=== PATIENT | female | born 1940 | race Caucasian/White ===

== ENCOUNTER 2017-03-18 08:00 | Outpatient (CLI) | payer MEDICARE | END 2017-03-18 08:01 | disposition home or self-care (01) | LOC: BICMAMMO 08:00 | PROVIDERS: ATTEND Family Medicine | DX: N63.10 Unspecified lump in the right breast, unspecified quadrant (principal); Z80.3 Family history of malignant neoplasm of breast | CPT/HCPCS: G0204; G0279; 77066 ==

== ENCOUNTER → 2017-04-03 | Day surgery (SDC) | payer MEDICARE | LOC: BICULT 13:54 | PROVIDERS: ATTEND Family Medicine | DX: N60.11 Diffuse cystic mastopathy of right breast (principal) | CPT/HCPCS: 19083; 88305 ==

== ENCOUNTER 2018-03-06 21:01 | Emergency (ER) | payer MEDICARE ==
[2018-03-06 21:40] LABS: #Basophils 0.2 thou/uL (0.0-0.2); #Eosinphils 0.2 thou/uL (0.0-0.7); #Monocytes 0.6 thou/uL (0.11-0.59); #Neutrophils 5.9 thou/uL (1.40-6.50); %Lymphocytes 22.1 % (21.0-51.0); %Neutrophils 66.8 % (42.0-75.0); Hemoglobin 13.5 g/dL (12.0-16.0); Mean Corpuscular HGB CONC 30.8 g/dL (32.0-36.0); Mean Corpuscular Hemoglobin 26.5 pg (27.0-31.0); Mean Corpuscular Volume 85.8 fL (78.0-98.0); Mean Platelet Volume 9.4 fL (7.4-10.4); Platelet Count 348 thou/uL (130-400); RBC Distribution Width 12.2 % (11.5-14.5); Red Blood Cell (RBC) Count 5.09 mill/uL (4.20-5.40); White Blood Cell (WBC) Count 8.9 thou/uL (4.8-10.8)
[2018-03-06 21:45] LABS: ALT (SGPT) 37 U/L (8-55); AST (SGOT) 24 U/L (5-34); Alkaline Phosphatase 85 U/L (40-150); Anion Gap 15 mmol/L (10-20); BUN (Urea Nitrogen) 20 mg/dL (9.8-20.1); Bilirubin, Total 0.3 mg/dL (0.2-1.2); Calc. Creatinine Clearance 0 mL/min (70-130); Calcium 10.1 mg/dL (7.8-10.44); Carbon Dioxide 22 mmol/L (23-31); Chloride 103 mmol/L (98-107); Estimated GFR-MDRD 90; Globulin 3.4 g/dL (2.4-3.5); Glucose 192 mg/dL (83-110); Potassium 4.1 mmol/L (3.5-5.1); Protein, Total 7.4 g/dL (6.0-8.3); Sodium 136 mmol/L (136-145)
[2018-03-06 22:06] LABS: Bilirubin Negative (Negative); Blood, Urine Negative (Negative); Clarity Slightly Cloudy (Clear); Glucose, Urine (Dipstick) Negative (Negative); Leukocyte Trace (Negative); Nitrite Negative (Negative); Protein, Urine (Dipstick) 100 mg/dL (Neg-Trace); Urobilinogen 0.2 mg/dL (0.2-1.0)
[2018-03-06 22:07] LABS: Bacteria/HPF 1+ HPF (None Seen); Hyaline Casts/LPF NONE SEEN LPF (0-3 Hyaline); RBC/HPF 0-3 HPF (0-3); Specific Gravity, Urine 1.027 (1.002-1.036)
== END 2018-03-06 22:20 | disposition home or self-care (01) ==
LOC: SCSER 21:01
DX: I10 Essential (primary) hypertension (principal); N39.0 Urinary tract infection, site not specified; K21.9 Gastro-esophageal reflux disease without esophagitis; E11.9 Type 2 diabetes mellitus without complications; E78.5 Hyperlipidemia, unspecified; Z79.899 Other long term (current) drug therapy; Z79.82 Long term (current) use of aspirin
CPT/HCPCS: 80053; 81003; 81015; 84484; 85025; 93005

== ENCOUNTER 2018-07-31 12:39 | Outpatient (CLI) | payer MEDICARE ==
--- NOTE | 2018-07-31 13:54 | MMO ---
Bilateral MAMMO Bilat Screen [facility]. CLINICAL HISTORY: Patient is 78 years old and is seen for screening. The patient has the following family history of breast cancer: mother, at age 40. The patient has no personal history of cancer. The patient has a history of right Ultrasound Guided Core Biopsy in March, - benign and left Excisional Biopsy in 20 YRS AGO - benign. VIEWS: The views performed were: bilateral craniocaudal with tomosynthesis and bilateral mediolateral oblique with tomosynthesis. FILMS COMPARED: The present examination has been compared to prior imaging [place] [facility] [place], and at [facility] on 03/18/2017. MAMMOGRAM FINDINGS: There are scattered fibroglandular densities. Benign calcifications are noted bilaterally. Right biopsy clip. There are no suspicious masses, suspicious calcifications, or new areas of architectural distortion. IMPRESSION: THERE IS NO MAMMOGRAPHIC EVIDENCE OF MALIGNANCY. A ROUTINE FOLLOW-UP MAMMOGRAM IN 1 YEAR IS RECOMMENDED. THE RESULTS OF THIS EXAM WERE SENT TO THE PATIENT. ACR BI-RADS Category 2 - Benign finding MAMMOGRAPHY NOTE: 1. A negative mammogram report should not delay a biopsy if a dominant of clinically suspicious mass is present. 2. Approximately 10% to 15% of breast cancers are not detected by mammography. 3. Adenosis and dense breasts may obscure an underlying neoplasm.
--- NOTE | 2018-07-31 15:40 | BD ---
DEXA BONE DENSITOMETRY: (Dual energy X-ray Absorptiometry) 07/31/18 HISTORY: 78-year-old white female for age-related, postmenopausal osteoporosis screening examination. Ht. 64 i nches. Wt. 210 lb. Age of menopause 33 years. COMPARISON: None available. FINDINGS: The bone mineral density (BMD) is given in grams per square centimeter (g/cm2): LUMBAR SPINE: BMD(g/cm2) T-score Z-score L1: 0.907 -0.9 1.5 L2: 0.977 -0.5 2.0 L3: 0.955 -1.2 1.5 L4: 1.055 -0.1 2.7 Total: 0.978 -0.6 1.9 HIP: Femoral neck: 0.733 -1.0 1.1 Total: 0.932 -0.1 1.8 IMPRESSION: 1) The mean bone mineral density of the lumbar spine is normal. Fracture risk is not increased. 2) The bone mineral density of the femoral neck is normal. Fracture risk is not increased. DAMARI Martinez POS: JANNA
== END 2018-07-31 12:40 | disposition home or self-care (01) ==
LOC: BICMAMMO 12:39
PROVIDERS: ATTEND Family Medicine
DX: Z12.31 Encounter for screening mammogram for malignant neoplasm of breast (principal); Z13.820 Encounter for screening for osteoporosis; Z78.0 Asymptomatic menopausal state; Z80.3 Family history of malignant neoplasm of breast
CPT/HCPCS: 77063; 77067; 77080

== ENCOUNTER 2019-10-07 10:33 | Outpatient (CLI) | payer MEDICARE ==
--- NOTE | 2019-10-07 11:03 | MMO ---
Bilateral MAMMO Bilat Screen [facility]. CLINICAL HISTORY: Patient is 79 years old and is seen for screening. The patient has the following family history of breast cancer: mother, at age 40. The patient has no personal history of cancer. The patient has a history of right Ultrasound Guided Core Biopsy in March, - benign and left Excisional Biopsy in 20 YRS AGO - benign. VIEWS: The views performed were: bilateral craniocaudal with tomosynthesis; bilateral mediolateral oblique with tomosynthesis; and right mediolateral oblique. FILMS COMPARED: The present examination has been compared to prior imaging studies performed at [facility] [place] on 12/26/[place], and at [facility] on 03/18/2017 and 07/31/2018. This study has been interpreted with the assistance of computer-aided detection. MAMMOGRAM FINDINGS: There are scattered fibroglandular densities. There are stable benign appearing calcifications seen in both breasts. There are no suspicious masses, suspicious calcifications, or new areas of architectural distortion. IMPRESSION: THERE IS NO MAMMOGRAPHIC EVIDENCE OF MALIGNANCY. A ROUTINE FOLLOW-UP MAMMOGRAM IN 1 YEAR IS RECOMMENDED. THE RESULTS OF THIS EXAM WERE SENT TO THE PATIENT. ACR BI-RADS Category 2 - Benign finding MAMMOGRAPHY NOTE: 1. A negative mammogram report should not delay a biopsy if a dominant of clinically suspicious mass is present. 2. Approximately 10% to 15% of breast cancers are not detected by mammography. 3. Adenosis and dense breasts may obscure an underlying neoplasm. Reported by: KATRINA ARDON MD Electonically Signed: [id number]
== END 2019-10-07 10:34 | disposition home or self-care (01) ==
LOC: BICMAMMO 10:33
PROVIDERS: ATTEND Family Medicine
DX: Z12.31 Encounter for screening mammogram for malignant neoplasm of breast (principal); Z80.3 Family history of malignant neoplasm of breast; Z91.89 Other specified personal risk factors, not elsewhere classified
CPT/HCPCS: 77063; 77067

== ENCOUNTER 2019-10-29 07:54 | Outpatient (CLI) | payer MEDICARE, OTHER ==
[2019-10-29 14:17] LABS: INR-International Normal Ratio 0.9; Prothrombin Time 12.3 sec (12.0-14.7)
[2019-10-29 14:32] LABS: #Basophils 0.1 thou/uL (0.0-0.2); #Eosinphils 0.1 thou/uL (0.0-0.7); #Lymphocytes 1.8 thou/uL (1.20-3.40); #Monocytes 0.6 thou/uL (0.11-0.59); #Neutrophils 7.6 thou/uL (1.40-6.50); %Basophils 1.2 % (0.0-1.0); %Eosinophils 1.3 % (0.0-10.0); %Lymphocytes 17.7 % (21.0-51.0); %Monocytes 6.3 % (0.0-10.0); %Neutrophils 73.7 % (42.0-75.0); Hemoglobin 13.7 g/dL (12.0-16.0); Mean Corpuscular HGB CONC 32.8 g/dL (32.0-36.0); Mean Corpuscular Hemoglobin 28.8 pg (27.0-31.0); Mean Corpuscular Volume 87.7 fL (78.0-98.0); Mean Platelet Volume 8.6 fL (7.4-10.4); Platelet Count 364 thou/uL (130-400); RBC Distribution Width 12.6 % (11.5-14.5); Red Blood Cell (RBC) Count 4.77 mill/uL (4.20-5.40); White Blood Cell (WBC) Count 10.3 thou/uL (4.8-10.8)
[2019-10-29 14:43] LABS: Bacteria/HPF None Seen HPF (None Seen); Bilirubin Negative (Negative); Blood, Urine Negative (Negative); Clarity Clear (Clear); Glucose, Urine (Dipstick) Normal (Negative); Ketone, Urine Negative (Negative); Leukocyte 250 Leu/uL (Negative); Nitrite Negative (Negative); Protein, Urine (Dipstick) 10 mg/dL (Neg-Trace); RBC/HPF 0-3 HPF (0-3); Specific Gravity, Urine 1.024 (1.002-1.036); Urobilinogen Normal mg/dL (Less than 2); pH, Urine 5.5 (5.0-9.0)
[2019-10-29 14:59] LABS: Anion Gap 13 mmol/L (10-20); BUN (Urea Nitrogen) 20 mg/dL (9.8-20.1); Calc. Creatinine Clearance 0 mL/min (70-130); Calcium 10.1 mg/dL (7.8-10.44); Carbon Dioxide 27 mmol/L (23-31); Chloride 99 mmol/L (98-107); Estimated GFR-MDRD 90; Glucose 137 mg/dL (83-110); Potassium 4.4 mmol/L (3.5-5.1); Sodium 135 mmol/L (136-145)
[2019-10-30 13:41] LABS: SARS-CoV-2 MS2 Positive; SARS-CoV-2 N Gene Negative; SARS-CoV-2 S Gene Negative; SARS-CoV-2 by NAA Not Detected (NotDetected); SARS-CoV-2 orf1ab Negative
== END 2019-10-29 07:55 | disposition home or self-care (01) ==
LOC: LABBT 07:54
PROVIDERS: ATTEND Orthopaedic Surgery
DX: Z01.818 Encounter for other preprocedural examination (principal); Z20.828 Contact with and (suspected) exposure to other viral communicable diseases; T84.093D Other mechanical complication of internal left knee prosthesis, subsequent encounter
CPT/HCPCS: 80048; 81001; 85025; 85610; 87081; 93005; U0003; 87635; 93010

== ENCOUNTER 2019-10-29 13:15 | Inpatient (IN) | payer MEDICARE ==
[2019-10-29 09:38] VITALS: BMI 35.5
[2019-11-03] MEDS ORDERED: Vancomycin 1.5 GRAM/300 ML BAG ONE (07:54)
[2019-11-03] MEDS ORDERED: Tranexamic Acid 1,000 MG/10 ML VIAL ONE ×2 (07:54→12:25)
[2019-11-03] MEDS ORDERED: Sodium Chloride 0.9% 100 ML ONE (07:54)
[2019-11-03] MEDS ORDERED: Midazolam HCl 2 mg/2 ml Vial ONE ×2 (08:42→08:45)
[2019-11-03] MEDS ORDERED: Fentanyl 100 MCG/2 ML VIAL ONE ×3 (08:42→12:51)
[2019-11-03] MEDS ORDERED: Zolpidem Tartrate 5 MG TAB PO PRN ×2 (09:08→09:23)
[2019-11-03] MEDS ORDERED: Ondansetron PF 4 MG/2 ML Vial IVP PRN ×2 (09:08→09:23)
[2019-11-03] MEDS ORDERED: Acetaminophen 325 MG TAB PO PRN (09:08)
[2019-11-03] MEDS ORDERED: traMADol HCl 50 MG TAB PO PRN ×3 (09:08→09:23)
[2019-11-03] MEDS ORDERED: HYDROcodone/Acetaminophen 10/325 mg Tablet PO PRN ×2 (09:08)
[2019-11-03] MEDS ORDERED: Promethazine HCl 25 MG/ML VIAL IM PRN ×3 (09:08→12:14)
[2019-11-03] MEDS ORDERED: diphenhydrAMINE 25 MG CAP PO PRN (09:08)
[2019-11-03] MEDS ORDERED: Ropivacaine 0.2% HCl/PF (40 MG/20 ML VIAL) ONE (09:19)
[2019-11-03] MEDS ORDERED: Bupivacaine HCl 0.5%/Epinephrine 1:200,000/PF 30 ml Vial ONE (09:19)
[2019-11-03] MEDS ORDERED: Lidocaine 1% PF 5 ML VIAL ONE (09:19)
[2019-11-03] MEDS ORDERED: diphenhydrAMINE 50 MG/ML VIAL ONE (09:19)
[2019-11-03] MEDS ORDERED: Ondansetron PF 4 MG/2 ML Vial ONE (09:19)
[2019-11-03] MEDS ORDERED: EPHEDRINE 25 MG/5 ML SYRINGE ONE (09:19)
[2019-11-03] MEDS ORDERED: PROPOFOL 200 MG/20 ML VIAL ONE (09:19)
[2019-11-03] MEDS ORDERED: Ropivacaine HCl/PF 250 ML in Premix Bag 1 BAG NERVE BLCK SCH (09:23)
[2019-11-03] MEDS ORDERED: HYDROcodone/Acetaminophen 5/325 mg Tablet PO PRN (09:23)
[2019-11-03] MEDS ORDERED: Fentanyl 100 MCG/2 ML VIAL IV PRN (09:24)
[2019-11-03] MEDS ORDERED: Ondansetron HCl/PF 4 MG/2 ML Vial IVP PRN (12:14)
[2019-11-03] MEDS ORDERED: Promethazine HCl 25 MG/ML VIAL SLOW IVP PRN (12:14)
[2019-11-03] MEDS ORDERED: Morphine Sulfate 2 MG/ML SYRINGE SLOW IVP PRN (12:14)
[2019-11-03] MEDS: Sodium Chloride 0.9% 1,000 ML IV SCH ×2 (13:05→15:57)
[2019-11-03] MEDS: Ketorolac Tromethamine 30 MG/ML VIAL IVP SCH ×3 (13:06→23:10)
[2019-11-03] MEDS ORDERED: Ketorolac Tromethamine 30 MG/ML VIAL IVP SCH (14:00)
--- NOTE | 2019-11-03 14:11 | RAD ---
LEFT KNEE 3 VIEWS: HISTORY: Postop knee replacement. FINDINGS: There are postoperative changes in the soft tissues. A knee prosthesis has been placed. Components show adequate position and alignment. POS: AGW
[2019-11-03] MEDS ORDERED: Insulin Regular 300 UNITS/3 ML VIAL SC PRN (15:07)
[2019-11-03] MEDS ORDERED: Dextrose 50% Abboject 50 ML SYRINGE SLOW IVP PRN (15:07)
[2019-11-03] MEDS ORDERED: Dextrose 5% in Water 1,000 ML IV PRN (15:07)
[2019-11-03] MEDS: CEFAZOLIN 2 GM in Premix Bag 1 BAG IVPB SCH ×2 (15:58→23:10)
[2019-11-03] MEDS: glipiZIDE 5 MG TAB PO SCH (16:03)
[2019-11-03] MEDS: Insulin Regular 300 UNITS/3 ML VIAL SC PRN (17:56)
--- NOTE | 2019-11-03 17:58 | PDOC.HOSPP ---
- Subjective Encounter Date: 11/03/19 Encounter Time: 15:00 Subjective: Seen and examined for medical management. Pain controlled. No fever, chills, chest pain, palpitations, nausea or vomiting reported. - Objective Vital Signs & Weight: Vital Signs (12 hours) Temp Pulse Resp BP Pulse Ox 11/03/19 13:45 97.3 F L 86 18 135/68 95 Weight Weight 207 lb I&O: 11/02/19 11/03/19 11/04/19 06:59 06:59 06:59 Intake Total 1100 Output Total 600 Balance 500 Additional Labs: Accuchecks 11/03/19 17:33 POC Glucose 202 H Laboratory Tests 09/24/19 09/24/19 10/29/19 09:14 09:14 11:00 WBC Hgb Sodium 135 L Potassium 4.4 Chloride 99 Hemoglobin A1c 7.0 H Triglycerides 235 H 10/29/19 11:00 WBC 10.3 Hgb 13.7 Sodium Potassium Chloride Hemoglobin A1c Triglycerides EKG Reviewed by me: Yes (Sinus rhythm) Hospitalist ROS - Review of Systems Respiratory: denies: cough, dry, shortness of breath, hemoptysis, SOB with excertion, pleuritic pain, sputum, wheezing, other Cardiovascular: denies: chest pain, palpitations, orthopnea, paroxysmal noc. dyspnea, edema, light headedness, other - Medication Medications: Active Medications Generic Name Dose Route Start Last Admin Trade Name Freq PRN Reason Stop Dose Admin Glipizide 5 mg 11/03/19 17:00 11/03/19 16:03 Glucotrol PO 5 mg BID-WM ZOILA Administration Cefazolin Sodium/Dextrose 2 gm 50 mls @ 100 mls/hr 11/03/19 16:00 11/03/19 15 :58 / Device IVPB 11/04/19 00:29 50 mls 0000,1600 ZOILA Administration Sodium Chloride 1,000 mls @ 100 mls/hr 11/03/19 09:15 11/03/19 15:57 Normal Saline 0.9% IV 1,000 mls .Q10H ZOILA Administration Ketorolac Tromethamine 15 mg 11/03/19 12:00 11/03/19 16:06 Toradol IVP 11/05/19 06:01 15 mg Q6HR ZOILA Administration - Exam General Appearance: NAD Heart: RRR, no gallops Respiratory: no wheezes, no ronchi Gastrointestinal: non-tender, normal bowel sounds Extremities: no cyanosis, no clubbing, no edema Neurological: no new deficit Psychiatric: normal affect, A&O x 3 Hosp A/P - Plan DVT proph w/SCDs Diabetes mellitus type 2 Hypertension Hyperlipidemia GERD Obesity with a BMI 35.5 Degenerative joint disease Seasonal allergies Mild hyponatremia Plan: Continue postop monitoring. Will start insulin sliding scale. Continue glipizide. Restart lisinopril, metoprolol and amlodipine with holding parameters. DVT prophylaxis per protocol. Add PRN antihypertensives. Incentive spirometry. Vital signs per protocol. Continue physical therapy. Full code. Patient makes her own decision with the help of her family. Thank you for this consultation will follow with you.
--- NOTE | 2019-11-03 18:37 | OP ---
DATE OF PROCEDURE: 11/03/2019 This is Yeyo Doan PA-C dictating a report for Jeff Mcmahan MD. 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 OPERATIVE PROCEDURE: Revision left total knee arthroplasty. SURGEON: Jeff Mcmahan MD. SILK FOLDER: Yeyo Doan PA-C. ANESTHESIA: General via LMA augmented with indwelling adductor canal block and a single-shot sciatic block. COMPONENTS USED: [employer], size 2 total stabilized femoral component with a 16 mm diameter 100 mm length fluted stem, a size 2 triathlon universal tibial base plate with a 50 mm cemented stem, 13 mm polyethylene fixed bearing TS insert and appropriate augments as needed both distally and posteriorly. ESTIMATED BLOOD LOSS: 100. FINDINGS: Multidirectional instability, lateral collateral ligament instability and posterior cruciate ligament absence, and multidirectional instability and posterior subluxation. TOURNIQUET TIME: 108 minutes. INPUT: 1 L of crystalloid. OUTPUT: 200 mL clear yellow urine. DRAINS: None. SPECIMENS: None. COMPLICATIONS: None. COUNTS: Correct. INDICATION FOR SURGERY: Anabella is a 79-year-old white female, who has had multidirectional instability and left total knee arthroplasty, which was performed greater than 10 years ago. Apparently, she has had rupture of both lateral collateral ligament as well as her posterior cruciate ligament from her originally cruciate sparing platform, which was implanted greater than 10 years ago. DESCRIPTION OF PROCEDURE: After informed consent was obtained in the preoperative holding area, the patient was taken to the operative suite, where she received preoperative antibiotics and a well-padded tourniquet was placed over the proximal thigh of the operative side. The patient was then positioned appropriately on the operating table and the operative extremity was prepped and draped in usual sterile fashion. Prior to exsanguination, a multidisciplinary time-out was called and observed by all members of the surgical team. The extremity was then exsanguinated and the tourniquet remained further rest of the case to include closure. A midline incision was performed using the patient's old scar right directly down the anterior aspect of the knee. We sharply undermined the subcutaneous layers exposing the medial capsule and a sharp medial parapatellar arthrotomy was carried down two fingerbreadths medial to the tibial tubercle. A full synovectomy was performed all the way down to the joint line. Both medial and lateral gutters were cleaned out. Thus, exposing the femoral implant as well as tibial implant. The polyethylene insert was removed using a series of a curved curettes and leverage. After this was completed, we then turned our attention to removal of the femoral component. The reciprocating saw was used to clear the anterior flanges and a series of offset osteotomes and curved osteotomes were used to chisel away the rest of the cement mantle. The pharmacy sales assistant performed the reciprocating cuts for femoral removal and also the pharmacy sales assistant performed the medial parapatellar arthrotomy and subtotal synovectomy. This was then distal malleted with a RAIL TRACK MAINTAINER punch and then loosen the femoral component as much, so that it could be removed. Attention was turned toward tibial explantation and also the reciprocating saw and series of offset punches was used. Once removed, we then used sequential reaming in both the tibia and femur up to a good cortical diaphyseal purchase. The tibial cutting guide was placed and a proximal tibial revision resection was performed with the oscillating saw. Temporary base plate was set in rotation. The canal was punched for the keel and over-reamed for the tibial stem. Trials were placed in the tibia and we turned attention to the femoral rotation. We chose the appropriate spacer trial, set the femoral cutting guide off this in both flexion and extension and made the appropriate bone resections and/or built up with augmentation both anteriorly and posteriorly for good femoral fit rotation and smooth flexion, extension, varus valgus stressing. Appropriate bone cuts were made for the femoral component. Cutting block was removed and femoral trial was placed with an appropriate insert. Happy with our fit finish and varus valgus stressing, all trials removed and the bone was then irrigated copiously and prepared for permanent implants. Methacrylate cement was placed in the tibia. The final implant was malleted into place. All excess cement was removed with curettage as was the femoral component and then the interbody spacer was then placed and malleted into place and firmly pinned. The knee was placed into extension and the cement was allowed to cure. The entire wound was copiously irrigated with normal saline pulsatile lavage. Happy with our varus valgus stressing instability, primary closure was accomplished with interrupted #2 Vicryls. This was oversewn with a #2 Quill for the arthrotomy closure. Subcutaneous layer was closed with running 0 Quill and 2-0 Quill stitch was used to reapproximate the skin with cement applied over the top. Sterile dressing was applied. The procedure was terminated without any complication. Tourniquet was dropped and the patient was then awakened in the operative suite and taken to recovery room in stable condition. Job ID: [id number]
[2019-11-03] MEDS: Amlodipine 5 MG TAB PO SCH (20:30)
[2019-11-03] MEDS: Aspirin 81 mg Enteric Coated Tablet PO SCH (20:30)
[2019-11-03] MEDS ORDERED: Amlodipine 5 MG TAB PO SCH (21:00)
[2019-11-04] MEDS: HYDROcodone/Acetaminophen 5/325 mg Tablet PO PRN ×2 (05:04→16:24)
[2019-11-04] MEDS: Ketorolac Tromethamine 30 MG/ML VIAL IVP SCH ×4 (05:06→23:35)
[2019-11-04 05:26] LABS: Hemoglobin 11.9 g/dL (12.0-16.0); Mean Corpuscular HGB CONC 33.1 g/dL (32.0-36.0); Mean Corpuscular Hemoglobin 28.4 pg (27.0-31.0); Mean Corpuscular Volume 85.7 fL (78.0-98.0); Mean Platelet Volume 8.8 fL (7.4-10.4); Platelet Count 278 thou/uL (130-400); RBC Distribution Width 12.6 % (11.5-14.5); Red Blood Cell (RBC) Count 4.18 mill/uL (4.20-5.40); White Blood Cell (WBC) Count 12.7 thou/uL (4.8-10.8)
[2019-11-04] MEDS: Sodium Chloride 0.9% 1,000 ML IV SCH ×3 (05:35→23:45)
[2019-11-04] MEDS: Insulin Regular 300 UNITS/3 ML VIAL SC PRN ×3 (05:54→16:54)
--- NOTE | 2019-11-04 08:56 | PRG ---
DATE OF SERVICE: 11/04/2019 SUBJECTIVE: Anabella is a 79-year-old female, postop day 1 from a revision left total knee arthroplasty. She is doing very well. She has no complaints at this point. She is comfortable with her postoperative pain and is tolerating it very well. OBJECTIVE: VITAL SIGNS: Temperature 98.2, pulse 93, respiratory rate 16, and blood pressure 127/62. GENERAL: She is alert and oriented to person, place, time, and situation. Responsive and appropriate with examiner. EXTREMITIES: Incision is clean. No strike through and she is neurovascularly intact in the left lower extremity. LABORATORY DATA: Hemoglobin and hematocrit 11.9 and 35.8. IMPRESSION: A 79-year-old female, postop day 1, revision left total knee arthroplasty. PLAN: Continue current care. Expect discharge home tomorrow. Job ID: [id number]
[2019-11-04] MEDS ORDERED: Aspirin 325 MG TAB PO SCH (09:00)
[2019-11-04] MEDS ORDERED: MULTIVITAMIN PO SCH (09:00)
[2019-11-04] MEDS ORDERED: Lisinopril 20 MG TAB PO SCH (09:00)
[2019-11-04] MEDS ORDERED: Hydrochlorothiazide 25 MG TAB PO SCH (09:00)
[2019-11-04] MEDS: Lisinopril 20 MG TAB PO SCH (09:21)
[2019-11-04] MEDS: Hydrochlorothiazide 25 MG TAB PO SCH (09:22)
[2019-11-04] MEDS: glipiZIDE 5 MG TAB PO SCH ×2 (09:22→16:24)
[2019-11-04] MEDS: Senokot S 8.6-50 MG TAB PO SCH ×2 (09:22→21:21)
[2019-11-04] MEDS: Aspirin 81 mg Enteric Coated Tablet PO SCH ×2 (09:23→21:21)
[2019-11-04] MEDS: Ferrous Gluconate 324 MG TAB PO SCH ×2 (09:23→21:24)
[2019-11-04] MEDS: Fluticasone Propionate Nasal Spray 16 gm Bottle NASAL SCH (09:23)
[2019-11-04] MEDS: Multivitamin W/ Minerals 1 TAB PO SCH (09:23)
[2019-11-04] MEDS: Loratadine 10 MG TAB PO SCH (09:23)
--- NOTE | 2019-11-04 18:38 | PDOC.HOSPP ---
- Subjective Encounter Date: 11/04/19 Encounter Time: 11:00 Subjective: Patient seen and examined for medical management. Pain controlled. Denies any chest pain, shortness of breath, fever, nausea or syncope. - Objective Vital Signs & Weight: Vital Signs (12 hours) Temp Pulse Resp BP Pulse Ox 11/04/19 16:34 98.1 F 85 14 137/69 95 11/04/19 11:25 98.0 F 95 16 139/69 94 L 11/04/19 08:00 93 L 11/04/19 07:59 98.2 F 93 16 127/62 93 L Weight Admit Weight 207 lb Weight 207 lb I&O: 11/03/19 11/04/19 11/05/19 06:59 06:59 06:59 Intake Total 1100 1720 Output Total 600 1450 Balance 500 270 Result Diagrams: 11/04/19 05:00 Additional Labs: Accuchecks 11/04/19 11/04/19 11/04/19 15:43 10:44 05:49 POC Glucose 178 H 225 H 203 H 11/03/19 21:24 POC Glucose 174 H Hospitalist ROS - Review of Systems Respiratory: denies: cough, dry, shortness of breath, hemoptysis, SOB with excertion, pleuritic pain, sputum, wheezing, other Cardiovascular: denies: chest pain, palpitations, orthopnea, paroxysmal noc. dyspnea, edema, light headedness, other - Medication Medications: Active Medications Generic Name Dose Route Start Last Admin Trade Name Freq PRN Reason Stop Dose Admin Acetaminophen 650 mg 11/03/19 09:08 11/04/19 10:36 Tylenol PO 650 mg Q4H PRN Administration Headache/Fever or Pain Hydrocodone Bitart/Acetaminophen 2 tab 11/03/19 09:23 11/04/19 16:24 Worley 5/325 PO 2 tab Q4H PRN Administration For Moderate Pain 4-6 Amlodipine Besylate 5 mg 11/03/19 21:00 11/03/19 20:30 Norvasc PO Not Given HS ZOILA Aspirin 81 mg 11/03/19 21:00 11/04/19 09:23 Ecotrin PO 81 mg BID ZOILA Administration Ferrous Gluconate 324 mg 11/04/19 09:00 11/04/19 09:23 Fergon PO 324 mg BID ZOILA Administration Fluticasone Propionate 0 gm 11/04/19 09:00 11/04/19 09:23 Flonase Nasal Sharon NASAL 1 spr DAILY ZOILA Administration Glipizide 5 mg 11/03/19 17:00 11/04/19 16:24 Glucotrol PO 5 mg BID- ZOILA Administration Hydrochlorothiazide 25 mg 11/04/19 09:00 11/04/19 09:22 Hydrochlorothiazide PO 25 mg DAILY ZOILA Administration Sodium Chloride 1,000 mls @ 100 mls/hr 11/03/19 09:15 11/04/19 12:35 Normal Saline 0.9% IV Not Given .Q10H ZOILA Ropivacaine 250 ml/ Device 250 mls @ 10 mls/hr 11/03/19 09:23 11/04/19 16:24 NERVE BLCK 11/06/19 09:22 250 mls INF ZOILA Administration Insulin Human Regular 0 units 11/03/19 15:07 11/04/19 16:54 Humulin R SC 2 unit .MILD SLIDING SCALE PRN Administration Mild Correctional Scale Iron/Minerals/Multivitamins 1 tab 11/04/19 09:00 11/04/19 09:23 Theragran M PO 1 tab DAILY ZOILA Administration Ketorolac Tromethamine 15 mg 11/03/19 12:00 11/04/19 16:25 Toradol IVP 11/05/19 06:01 15 mg Q6HR ZOILA Administration Lisinopril 40 mg 11/04/19 09:00 11/04/19 09:21 Zestril PO 40 mg DAILY ZOILA Administration Loratadine 10 mg 11/04/19 09:00 11/04/19 09:23 Claritin PO 10 mg DAILY ZOILA Administration Metoprolol Succinate 100 mg 11/04/19 09:00 11/04/19 09:24 Toprol Xl PO 100 mg DAILY ZOILA Administration Pantoprazole Sodium 40 mg 11/04/19 09:00 11/04/19 09:24 Protonix PO 40 mg DAILY ZOILA Administration Senna/Docusate Sodium 2 tab 11/04/19 09:00 11/04/19 09:22 Senokot S PO 2 tab BID ZOILA Administration Tramadol HCl 100 mg 11/03/19 09:23 11/04/19 10:37 Ultram PO 100 mg Q6H PRN Administration Moderate Pain 4-6 - Exam General Appearance: NAD Neck: supple, no JVD Heart: RRR, no gallops Respiratory: no wheezes, no ronchi Gastrointestinal: soft, non-tender, normal bowel sounds Extremities: no cyanosis Neurological: no new deficit Hosp A/P - Plan DVT proph w/SCDs Diabetes mellitus type 2 Hypertension Hyperlipidemia GERD Obesity with a BMI 35.5 Degenerative joint disease Seasonal allergies Mild hyponatremia Plan: 11/03 Continue sliding scale with glipizide. Continue lisinopril and metoprolol. Patient did not receive amlodipine last night due to blood pressure on the lower side. Continue therapy. Continue other medications as above. DVT prophylaxis per protocol. Will follow 11/02 Continue postop monitoring. Will start insulin sliding scale. Continue glipizide. Restart lisinopril, metoprolol and amlodipine with holding parameters. DVT prophylaxis per protocol. Add PRN antihypertensives. Incentive spirometry. Vital signs per protocol. Continue physical therapy. Full code. Patient makes her own decision with the help of her family. Thank you for this consultation will follow with you.
[2019-11-04] MEDS ORDERED: metFORMIN XR 500 MG TAB PO SCH (21:00)
[2019-11-04] MEDS: Amlodipine 5 MG TAB PO SCH (21:21)
[2019-11-05] MEDS: Ketorolac Tromethamine 30 MG/ML VIAL IVP SCH (05:33)
[2019-11-05] MEDS: HYDROcodone/Acetaminophen 5/325 mg Tablet PO PRN ×2 (05:37→13:13)
[2019-11-05] MEDS: Insulin Regular 300 UNITS/3 ML VIAL SC PRN ×2 (05:46→13:15)
[2019-11-05] MEDS: Ferrous Gluconate 324 MG TAB PO SCH (09:18)
[2019-11-05] MEDS: Aspirin 81 mg Enteric Coated Tablet PO SCH (09:18)
[2019-11-05] MEDS: glipiZIDE 5 MG TAB PO SCH (09:18)
[2019-11-05] MEDS: Senokot S 8.6-50 MG TAB PO SCH (09:19)
[2019-11-05] MEDS: Lisinopril 20 MG TAB PO SCH (09:19)
[2019-11-05] MEDS: Hydrochlorothiazide 25 MG TAB PO SCH (09:19)
[2019-11-05] MEDS: Loratadine 10 MG TAB PO SCH (09:19)
[2019-11-05] MEDS: Multivitamin W/ Minerals 1 TAB PO SCH (09:19)
[2019-11-05] MEDS: Fluticasone Propionate Nasal Spray 16 gm Bottle NASAL SCH (09:20)
[2019-11-05 11:49] VITALS: BP 133/57; TEMP 98.3
[2019-11-05] MEDS: Sodium Chloride 0.9% 1,000 ML IV SCH (13:50)
== END 2019-11-05 14:35 | disposition home or self-care (01) | DRG 467 ==
LOC: SURG A 11-03 06:51 → SJJU 11-03 14:02
PROVIDERS: ADMIT Orthopaedic Surgery; ATTEND Orthopaedic Surgery
PROC: 0SPD0JZ Removal of Synthetic Substitute from Left Knee Joint, Open Approach (ICD-10-PCS; principal; 2019-11-03)
PROC: 0SRD0J9 Replacement of Left Knee Joint with Synthetic Substitute, Cemented, Open Approach (ICD-10-PCS; 2019-11-03)
DX: T84.093A Other mechanical complication of internal left knee prosthesis, initial encounter (principal); E87.1 Hypo-osmolality and hyponatremia; M17.11 Unilateral primary osteoarthritis, right knee; Y83.1 Surgical operation with implant of artificial internal device as the cause of abnormal reaction of the patient, or of later complication, without mention of misadventure at the time of the procedure; E11.9 Type 2 diabetes mellitus without complications; I10 Essential (primary) hypertension; E78.5 Hyperlipidemia, unspecified; K21.9 Gastro-esophageal reflux disease without esophagitis; E66.9 Obesity, unspecified; Z68.35 Body mass index [BMI] 35.0-35.9, adult
CPT/HCPCS: 36415; 36416; 85027; C1713; C1776; J0670; J0690; J1200; J1815; J1885; J2250; J2405; J2704; J2795; J3010; J3370; J3490

== ENCOUNTER 2020-01-12 19:12 | Observation (INO) | payer MEDICARE ==
[2020-01-12] MEDS ORDERED: Morphine 4 MG/ML VIAL ONE (20:05)
--- NOTE | 2020-01-12 21:17 | RAD ---
LEFT KNEE FOUR VIEW: 01/12/20 HISTORY: Injury. COMPARISON: Radiograph 2019. FINDINGS: The post between the femoral articular compartment and the tibial stem is displaced with the tibia po steriorly with foreshortening. Large joint effusion. Extensive soft tissue swelling. IMPRESSION: Posterior displacement of the tibia relative to the femur with displacement of the femoral articular component from the tibial post. POS: HOME
[2020-01-12] MEDS ORDERED: Acetaminophen/Codeine 30-300mg Tablet PO PRN (21:21)
[2020-01-12] MEDS ORDERED: Ondansetron PF 4 MG/2 ML Vial SLOW IVP PRN (21:21)
[2020-01-12] MEDS ORDERED: Communication Order-Pharmacy FS SCH (21:30)
[2020-01-13] MEDS: Morphine 2 MG/ML VIAL SLOW IVP PRN ×2 (00:51→13:35)
[2020-01-13 01:05] VITALS: BMI 34.4
[2020-01-13] MEDS ORDERED: HYDROcodone/Acetaminophen 10/325 mg Tablet PO PRN ×2 (02:45)
[2020-01-13] MEDS ORDERED: Dextrose 50% Abboject 50 ML SYRINGE SLOW IVP PRN (05:23)
[2020-01-13] MEDS ORDERED: Dextrose 5% in Water 1,000 ML IV PRN (05:23)
[2020-01-13] MEDS ORDERED: Insulin Regular 300 UNITS/3 ML VIAL SC PRN ×2 (05:23)
[2020-01-13] MEDS ORDERED: Polyethylene Glycol 3350 17 GM Packet PO PRN (05:27)
[2020-01-13] MEDS ORDERED: Labetalol HCl 100 MG/20 ML VIAL SLOW IVP PRN (05:29)
[2020-01-13 06:43] LABS: PTT 32.4 sec (22.9-36.1); Prothrombin Time 13.1 sec (12.0-14.7)
[2020-01-13 07:00] LABS: #Basophils 0.1 thou/uL (0.0-0.2); #Eosinphils 0.3 thou/uL (0.0-0.7); #Lymphocytes 2.2 thou/uL (1.20-3.40); #Monocytes 0.8 thou/uL (0.11-0.59); #Neutrophils 8.5 thou/uL (1.40-6.50); %Basophils 0.8 % (0.0-1.0); %Eosinophils 2.5 % (0.0-10.0); %Lymphocytes 18.4 % (21.0-51.0); %Monocytes 6.5 % (0.0-10.0); %Neutrophils 71.7 % (42.0-75.0); Hemoglobin 12.3 g/dL (12.0-16.0); Mean Corpuscular HGB CONC 32.7 g/dL (32.0-36.0); Mean Corpuscular Hemoglobin 28.5 pg (27.0-31.0); Mean Corpuscular Volume 87.2 fL (78.0-98.0); Mean Platelet Volume 8.6 fL (7.4-10.4); Platelet Count 332 thou/uL (130-400); RBC Distribution Width 12.9 % (11.5-14.5); Red Blood Cell (RBC) Count 4.31 mill/uL (4.20-5.40); White Blood Cell (WBC) Count 11.9 thou/uL (4.8-10.8)
[2020-01-13 07:01] LABS: Albumin 3.6 g/dL (3.4-4.8); Anion Gap 12 mmol/L (10-20); BUN (Urea Nitrogen) 18 mg/dL (9.8-20.1); BUN/Creatinine Ratio 31.03; Calc. Creatinine Clearance 119 mL/min (70-130); Calcium 9.5 mg/dL (7.8-10.44); Carbon Dioxide 27 mmol/L (23-31); Chloride 101 mmol/L (98-107); Estimated GFR-MDRD Greater than 90; Glucose 158 mg/dL (83-110); Magnesium 1.8 mg/dL (1.6-2.6); Phosphorus 3.2 mg/dL (2.3-4.7); Potassium 4.2 mmol/L (3.5-5.1); Sodium 136 mmol/L (136-145)
[2020-01-13] MEDS ORDERED: glipiZIDE 5 MG TAB PO SCH (08:00)
[2020-01-13] MEDS ORDERED: Rocuronium Bromide 10 MG/ML (10ML VIAL) ONE (08:56)
[2020-01-13] MEDS ORDERED: Lidocaine 1% PF 5 ML VIAL ONE (08:56)
[2020-01-13] MEDS ORDERED: Glycopyrrolate 0.2 MG/ML 5 ML SYRINGE ONE (08:56)
[2020-01-13] MEDS ORDERED: Ondansetron PF 4 MG/2 ML Vial ONE (08:56)
[2020-01-13] MEDS ORDERED: PROPOFOL 200 MG/20 ML VIAL ONE (08:56)
[2020-01-13] MEDS ORDERED: FLU VACC QS2020-21(65YR UP)/PF 240 MCG/0.7 ML SYRINGE IM ONE (09:00)
[2020-01-13] MEDS ORDERED: Lisinopril 20 MG TAB PO SCH (09:00)
--- NOTE | 2020-01-13 09:39 | HP ---
BRIEF HISTORY OF PRESENT ILLNESS: The patient is a pleasant 79-year-old lady, who was examined in the emergency room at [facility] following an episode earlier this evening when she was lying supine with the leg in extension and she felt her total knee "dislocate." She reports that 2 days prior, she had a similar episode, although it seemed to reduce spontaneously. On this event, it became displaced and then essentially resulted in a locked knee, which was not able to be brought into full extension, held in a position of maximal comfort of about 30 degrees of flexion with the ability to flex only approximately 20 degrees beyond this. Of note, the patient is now status post revision of failed total knee arthroplasty on November 03, 2019. The surgery performed by Dr. Jeff Mcmahan with placement of a total stabilized knee component. The patient was doing well prior to this episode. She is now admitted for attempt to closed reduction versus open revision of this total knee. Prior to this admission, the patient was in her general state of health with no fevers, cough, or shortness of breath. PAST MEDICAL HISTORY: Remarkable for type 2 diabetes, hypertension, history of colon polyps, hyperlipidemia, and gastroesophageal reflux. PAST SURGICAL HISTORY: Includes left total knee arthroplasty in 2008, revision in 2019. The patient also status post hysterectomy and cholecystectomy. MEDICATIONS: Which have yet to be completely verified with the patient include; 1. Aspirin. 2. Amlodipine. 3. Atorvastatin. 4. Hydrochlorothiazide. 5. Metoprolol. ALLERGIES: NONE KNOWN. SOCIAL HISTORY: The patient is a nonsmoker. Denies alcohol or drug use. FAMILY HISTORY: Noncontributory for this dislocation. REVIEW OF SYSTEMS: No recent fevers, chills, or sweats. Denies chest pain, cough, or shortness of breath. Denies numbness, tingling, or weakness in her extremities prior to this event. PHYSICAL EXAMINATION: VITAL SIGNS: Show temperature 97.6, heart rate of 86, respiratory rate of 16, and blood pressure 131/86. GENERAL: She is found to be awake and alert with mild distress secondary to this left knee pain. HEENT: Atraumatic and normocephalic. HEART: Shows regular rate and rhythm without murmur. LUNGS: Clear to auscultation bilaterally with good breath sounds. ABDOMEN: Round, soft, and nontender with normal bowel sounds. PELVIS: Stable to compression. EXTREMITIES: Remarkable for this left lower extremity with well-healed midline anterior knee incision. There is no erythema or any evidence of infection within the leg. There is an obvious posterior subluxation of the tibia on the femur. The patient is able to perform a straight leg raise and palpation does not show defect within the quadriceps mechanism either quadriceps tendon or patellar tendon. The patella appears well centralized within the groove of the distal femoral implant. Distally, she is wiggling her toes normally and has normal intact subjective sensation in the foot. She has a 2+ dorsalis pedis pulse. LABORATORY DATA: White count of 11.9, hematocrit of 37.6, and platelets 332,000. Her INR is 1.0. X-RAYS: Four view x-ray of this left knee is remarkable for a constrained total knee arthroplasty with stems on both femoral and tibial sides with subluxation of the tibia posterior to the femur with the polyethylene stem of the tibial component no longer centralized within the notch of the femoral component. I do not appreciate any periprosthetic fracture or loosening of the intramedullary stems on either femoral or tibial side. ASSESSMENT: A 79-year-old lady, status post revision total knee arthroplasty on left side, now with posterior dislocation. The patient with comorbidities including hypertension, diabetes, hyperlipidemia. PLAN: At this time, the patient is admitted. I will be discussing the case with Dr. Jeff Mcmahan. Our anticipated plan will entail an attempt to closed reduction of this implant. If this proves to be unsuccessful, then the patient will require an open revision of the total knee. Risks and benefits have been discussed with the patient. I believe all questions have been answered. The patient will be kept n.p.o. after midnight with plans to pursue a closed reduction on January 13, 2020. Job ID: [id number]
[2020-01-13 11:00] LABS: SARS-CoV-2 MS2 Positive; SARS-CoV-2 N Gene Negative; SARS-CoV-2 S Gene Negative; SARS-CoV-2 by NAA Not Detected (NotDetected); SARS-CoV-2 orf1ab Negative
[2020-01-13] MEDS: Fluticasone Propionate Nasal Spray 16 gm Bottle NASAL SCH (14:17)
[2020-01-13] MEDS: Aspirin 81 mg Enteric Coated Tablet PO SCH ×2 (14:17→20:40)
[2020-01-13] MEDS: Hydrochlorothiazide 25 MG TAB PO SCH (14:17)
[2020-01-13] MEDS: Loratadine 10 MG TAB PO SCH (14:17)
[2020-01-13] MEDS: Lisinopril 20 MG TAB PO SCH ×2 (14:17→20:40)
[2020-01-13] MEDS: Multivitamin W/ Minerals 1 TAB PO SCH (14:17)
[2020-01-13] MEDS: GLUCOSAMINE PO SCH (14:18)
[2020-01-13] MEDS: Senokot S 8.6-50 MG TAB PO SCH ×2 (14:18→20:41)
[2020-01-13] MEDS: D3 PO SCH (14:18)
[2020-01-13] MEDS: BOSWELLIA SERRA PO SCH (14:18)
--- NOTE | 2020-01-13 15:51 | PDOC.HOSPP ---
- Subjective Encounter Date: 01/13/20 Encounter Time: 10:30 Subjective: Patient seen and examined for medical management. Denies any chest pain or shortness of breath. No fever or chills. - Objective Vital Signs & Weight: Vital Signs (12 hours) Temp Pulse Resp BP Pulse Ox 01/13/20 10:45 97.6 F 84 16 129/72 93 L 01/13/20 08:11 97.6 F 86 16 131/68 94 L Weight Weight 207 lb 3.752 oz I&O: 01/12/20 01/13/20 01/14/20 06:59 06:59 06:59 Output Total 250 Balance -250 Result Diagrams: 01/13/20 05:50 01/13/20 05:50 Additional Labs: Accuchecks 01/13/20 10:48 POC Glucose 142 H Radiology Reviewed by me: Yes (Left knee x-ray reviewed) Hospitalist ROS - Review of Systems Cardiovascular: denies: chest pain, palpitations, orthopnea, paroxysmal noc. dyspnea, edema, light headedness, other Gastrointestinal: denies: nausea, vomiting, abdominal pain, diarrhea, constipation, melena, hematochezia, other - Medication Medications: Active Medications Generic Name Dose Route Start Last Admin Trade Name Freq PRN Reason Stop Dose Admin Aspirin 81 mg 01/13/20 09:00 01/13/20 14:17 Aspirin 81 Mg Enteric Coated Tablet PO Not Given BID ZOILA Fluticasone Propionate 0 gm 01/13/20 09:00 01/13/20 14:17 Fluticasone Propionate Nasal [place] 16 Gm Bottle NASAL Not Given DAILY ZOILA Hydrochlorothiazide 25 mg 01/13/20 09:00 01/13/20 14:17 Hydrochlorothiazide 25 Mg Tab PO Not Given DAILY [facility] Iron/Minerals/Multivitamins 1 tab 01/13/20 09:00 01/13/20 14:17 Multivitamin W/ Minerals 1 Tab PO Not Given DAILY ZOILA Lisinopril 20 mg 01/13/20 09:00 01/13/20 14:17 Lisinopril 20 Mg Tab PO Not Given BID ZOILA Loratadine 10 mg 01/13/20 09:00 01/13/20 14:17 Loratadine 10 Mg Tab PO Not Given DAILY ZOILA Metoprolol Succinate 50 mg 01/13/20 09:00 11/11/20 09:30 Metoprolol Succinate Xl 50 Mg Tab PO 50 mg BID ZOILA Administration Morphine Sulfate 2 mg 01/12/20 21:21 01/13/20 13:35 Morphine 2 Mg/Ml Vial SLOW IVP 2 mg Q2H PRN Administration Moderate Pain (4-6) Pantoprazole Sodium 40 mg 01/13/20 09:00 01/13/20 14:18 Pantoprazole 40 Mg Tab PO Not Given DAILY ZOILA Glucosamine/D3/ 1 each 01/13/20 09:00 01/13/20 14:18 [place]wellia Brittney PO Not Given DAILY ZOILA Senna/Docusate Sodium 2 tab 01/13/20 09:00 01/13/20 14:18 Senokot S 8.6-50 Mg Tab PO Not Given BID ZOILA - Exam General Appearance: NAD Heart: RRR, no gallops Respiratory: no wheezes, no ronchi Gastrointestinal: non-tender, normal bowel sounds Extremities: no cyanosis, no clubbing Neurological: no new deficit Musculoskeletal: generalized weakness Hosp A/P - Plan DVT proph w/SCDs Diabetes mellitus type 2 Hypertension Hyperlipidemia GERD Obesity with a BMI 34.5 Plan: Hold glipizide and Metformin due to n.p.o. status. Start sliding scale. Accu-Cheks AC and at bedtime. Continue amlodipine. Reduce lisinopril dose. Hold hydrochlorothiazide. Change Toprol-XL to 50 mg twice daily. Continue PPI. Pain control. Continue statins. Physical therapy post surgery. DVT prophylaxis. Add stool softeners. Incentive spirometry.
[2020-01-13] MEDS ORDERED: Fentanyl 100 MCG/2 ML VIAL ONE (16:59)
[2020-01-13] MEDS ORDERED: SUGAMMADEX SODIUM 200 MG/2 ML VIAL ONE (17:45)
[2020-01-13] MEDS ORDERED: Promethazine HCl 25 MG/ML VIAL IM PRN (18:01)
[2020-01-13] MEDS ORDERED: Promethazine HCl 25 MG/ML VIAL SLOW IVP PRN (18:01)
[2020-01-13] MEDS ORDERED: Ondansetron HCl/PF 4 MG/2 ML Vial IVP PRN (18:01)
--- NOTE | 2020-01-13 18:29 | OP ---
DATE OF PROCEDURE: 01/13/2020 PREOPERATIVE DIAGNOSIS: Left total knee arthroplasty posterior dislocation. POSTOPERATIVE DIAGNOSIS: Left total knee arthroplasty posterior dislocation. PROCEDURE PERFORMED: Closed reduction of left posterior total knee arthroplasty. ANESTHESIA: General. ANIMAL HUSBANDRY TECHNICIAN: Yeyo Doan PA-C ESTIMATED BLOOD LOSS: 0. COMPLICATIONS: None. DRAINS: None. SPECIMENS: None. OUTCOME: Satisfactory reduction. INDICATIONS FOR PROCEDURE: Ms. Wisdmo is a pleasant 79-year-old lady, who is now about two months out from a revision total knee arthroplasty with a constrained total knee. The patient reports that on the evening of admission, she was just rolling over in bed when the knee dislocated. The patient now taken to the operating room for closed reduction. Informed consent has been obtained. I believe. All questions answered. DESCRIPTION OF PROCEDURE: The patient was brought to the operating room and a time-out performed followed by induction of general anesthesia. Next, the patient was positioned supine on the fracture table with the well leg held in extension and the dislocated total knee held over a bolster, flexed approximately 45 degrees with the foot and ankle placed in a traction boot. Next, under C-arm guidance, traction was applied to the leg, and once the post was felt to be disimpacted, an anterior force was applied to the tibia in essentially an anterior drawer type fashion. Once performed, AP and lateral C-arm images were obtained that showed the post of the tibial tray now back centralized in its femoral groove. At this time, my technical staff assistant let traction off the leg while I continued to hold the leg reduced, and once traction fully came off, the implant was back to its normal alignment with a post centralized within the femoral component. At this time with my technical staff assistant's help, the patient was then transported off the OR table and back onto the regular bed, where hinged knee brace was applied to the knee, locked at 20 degrees of flexion. The patient was then transferred to recovery room in stable condition. There were no complications. The patient tolerated the procedure well. Job ID: [id number]
--- NOTE | 2020-01-13 18:30 | RAD ---
Left knee intraoperative fluoroscopy 2 views HISTORY: Dislocation. FINDINGS: Intraoperative fluoroscopy was provided for closed reduction is performed by Dr. Kaba. Spot fluoroscopic images show normal alignment of the left knee and replacement hardware. Fluoroscopy time 17 seconds.
[2020-01-13] MEDS: Magnesium Chloride 64 MG TAB PO SCH (20:40)
[2020-01-13] MEDS ORDERED: metFORMIN XR 500 MG TAB PO SCH (21:00)
[2020-01-13] MEDS ORDERED: metFORMIN 500 MG TAB PO SCH (21:00)
[2020-01-13] MEDS ORDERED: Atorvastatin Calcium 20 MG TAB PO SCH (21:00)
[2020-01-13] MEDS ORDERED: Amlodipine 5 MG TAB PO SCH ×2 (21:00)
[2020-01-14] MEDS: Morphine 2 MG/ML VIAL SLOW IVP PRN ×2 (00:54→03:27)
[2020-01-14] MEDS: Acetaminophen/Codeine 30-300mg Tablet PO PRN ×2 (02:35→11:24)
[2020-01-14] MEDS: Fluticasone Propionate Nasal Spray 16 gm Bottle NASAL SCH (08:16)
[2020-01-14] MEDS: Senokot S 8.6-50 MG TAB PO SCH (08:17)
[2020-01-14] MEDS: Magnesium Chloride 64 MG TAB PO SCH (08:18)
[2020-01-14] MEDS: Loratadine 10 MG TAB PO SCH (08:18)
[2020-01-14] MEDS: Lisinopril 20 MG TAB PO SCH (08:18)
[2020-01-14] MEDS: Multivitamin W/ Minerals 1 TAB PO SCH (08:18)
[2020-01-14] MEDS: Hydrochlorothiazide 25 MG TAB PO SCH (08:18)
[2020-01-14] MEDS: Aspirin 81 mg Enteric Coated Tablet PO SCH (08:18)
[2020-01-14] MEDS: BOSWELLIA SERRA PO SCH (08:25)
[2020-01-14] MEDS: GLUCOSAMINE PO SCH (08:25)
[2020-01-14] MEDS: D3 PO SCH (08:25)
--- NOTE | 2020-01-14 09:55 | RAD ---
XR Ankle Lt 3 View STANDARD History: Ankle pain after surgery Comparison: None Findings: Moderate bimalleolar soft tissue swelling. There is limited due to nontrue views. No acute displaced fracture or malalignment. No lateral talar shift. Impression: 1. No acute displaced fracture or malalignment. Bimalleolar soft tissue swelling. 2. Old osteochondral defect medial talar dome.
[2020-01-14 12:03] VITALS: BP 127/71; TEMP 98.1
--- NOTE | 2020-01-15 13:19 | DIS ---
DATE OF ADMISSION: 01/12/2020 DATE OF DISCHARGE: 01/14/2020 This is Bill Linares PA-C dictating a report for Husam Kaba MD. PREOPERATIVE DIAGNOSIS: Left total knee arthroplasty posterior dislocation. POSTOPERATIVE DIAGNOSIS: Left total knee arthroplasty posterior dislocation. PROCEDURE: The patient underwent a closed reduction of left posterior knee arthroplasty. HOSPITAL COURSE: Hospital stay was unremarkable. Admitted to [place] [id number], where she worked with staff, Physical Therapy, Occupational Therapy, and progressed quite well. By postop day 2, she was ready to discharge home. DISCHARGE CONDITION: Good/stable. DISPOSITION: Home with family. FOLLOWUP: Would be in 10 to 14 days or when designated by Dr. Mcmahan. DISCHARGE MEDICATIONS: Given with usage instructions. Job ID: [id number]
== END 2020-01-14 14:50 | disposition home or self-care (01) ==
LOC: ERS 19:12 → ERHOLD 21:27 → SURG B 01-13 00:21
PROVIDERS: ADMIT Orthopaedic Surgery; ATTEND Orthopaedic Surgery
PROC: 0SSDXZZ Reposition Left Knee Joint, External Approach (ICD-10-PCS; principal; 2020-01-13)
DX: T84.023A Instability of internal left knee prosthesis, initial encounter (principal); K21.9 Gastro-esophageal reflux disease without esophagitis; E11.9 Type 2 diabetes mellitus without complications; E78.5 Hyperlipidemia, unspecified; I10 Essential (primary) hypertension; J45.909 Unspecified asthma, uncomplicated; E66.9 Obesity, unspecified; Z68.34 Body mass index [BMI] 34.0-34.9, adult; Z79.82 Long term (current) use of aspirin; Z79.84 Long term (current) use of oral hypoglycemic drugs; Z79.899 Other long term (current) drug therapy; Z20.828 Contact with and (suspected) exposure to other viral communicable diseases; X58.XXXA Exposure to other specified factors, initial encounter
CPT/HCPCS: 27552; 73560; 73564; 73610; 76000; 80069; 82962 ×2; 83735; 85025; 85610; 85730; 96374; 97139; 99284; J2270 ×2; U0003; 36415; 36416; 87635; 96376; G0378; J2405; J2704; J3010

== ENCOUNTER 2020-02-24 15:28 | Observation (INO) | payer MEDICARE ==
[2020-02-24] MEDS ORDERED: Ondansetron PF 4 MG/2 ML Vial ONE (16:26)
[2020-02-24 16:39] LABS: #Basophils 0.1 thou/uL (0.0-0.2); #Eosinphils 0.1 thou/uL (0.0-0.7); #Lymphocytes 1.8 thou/uL (1.20-3.40); #Monocytes 0.6 thou/uL (0.11-0.59); #Neutrophils 7.9 thou/uL (1.40-6.50); %Basophils 0.6 % (0.0-1.0); %Eosinophils 1.1 % (0.0-10.0); %Lymphocytes 17.1 % (21.0-51.0); %Monocytes 5.7 % (0.0-10.0); %Neutrophils 75.6 % (42.0-75.0); Hemoglobin 12.8 g/dL (12.0-16.0); Mean Corpuscular HGB CONC 33.6 g/dL (32.0-36.0); Mean Corpuscular Hemoglobin 28.2 pg (27.0-31.0); Mean Platelet Volume 8.2 fL (7.4-10.4); Platelet Count 349 thou/uL (130-400); RBC Distribution Width 12.9 % (11.5-14.5); Red Blood Cell (RBC) Count 4.55 mill/uL (4.20-5.40); White Blood Cell (WBC) Count 10.4 thou/uL (4.8-10.8)
[2020-02-24] MEDS ORDERED: Morphine 4 MG/ML VIAL ONE (16:43)
[2020-02-24 16:46] LABS: INR-International Normal Ratio 0.9; PTT 30.3 sec (22.9-36.1); Prothrombin Time 12.4 sec (12.0-14.7)
[2020-02-24 17:04] LABS: ALT (SGPT) 40 U/L (8-55); AST (SGOT) 30 U/L (5-34); Alkaline Phosphatase 84 U/L (40-110); Anion Gap 13 mmol/L (10-20); BUN (Urea Nitrogen) 28 mg/dL (9.8-20.1); Bilirubin, Total 0.4 mg/dL (0.2-1.2); Calc. Creatinine Clearance 0 mL/min (70-130); Calcium 9.6 mg/dL (7.8-10.44); Carbon Dioxide 27 mmol/L (23-31); Chloride 100 mmol/L (98-107); Globulin 3.2 g/dL (2.4-3.5); Glucose 141 mg/dL (83-110); Potassium 3.9 mmol/L (3.5-5.1); Protein, Total 7.2 g/dL (6.0-8.3); Sodium 136 mmol/L (136-145)
[2020-02-24] MEDS ORDERED: Zolpidem Tartrate 5 MG TAB PO PRN (17:10)
[2020-02-24] MEDS ORDERED: HYDROcodone/Acetaminophen 10/325 mg Tablet PO PRN ×2 (17:10)
--- NOTE | 2020-02-24 18:40 | HP ---
CHIEF COMPLAINT: Left knee pain. HISTORY OF PRESENT ILLNESS: Anabella is a 80-year-old female who presented to the emergency room for left knee pain after she rolled over in bed. She had immediate onset of pain as she has had a prior dislocation of her total constrained construct, which was revised earlier this year in 11/2019. Dr. Mcmahan was called by the emergency room. She has been admitted to our service and n.p.o. after midnight for planned closed reduction in the morning. PAST MEDICAL HISTORY: 1. Diabetes, type 2. 2. Hyperlipidemia. 3. Gastroesophageal reflux disease. PAST SURGICAL: 1. Left total knee arthroplasty in 2008 with revision in 2019. 2. Hysterectomy. 3. Cholecystectomy. MEDICATIONS: 1. Aspirin. 2. Norvasc. 3. Atorvastatin. 4. Hydrochlorothiazide. 5. Metoprolol. ALLERGIES: NO KNOWN DRUG ALLERGIES. SOCIAL HISTORY: She denies any ethanol, tobacco, or illicit drug abuse. FAMILY HISTORY: Noncontributory. REVIEW OF SYSTEMS: She denies any fever, chills, nausea, vomiting, chest pain, dyspnea or dyspnea on exertion, constitutional symptoms, cough, congestion, or loss of taste or smell. PHYSICAL EXAMINATION: VITAL SIGNS: See nurse's note. GENERAL: Well-nourished, well-developed female, appearing stated age, in no apparent distress or discomfort. HEENT: Head is normocephalic and atraumatic. Pupils equal, round, and reactive to light. Oropharynx benign. CHEST: Clear to auscultation. HEART: Regular rhythm. ABDOMEN: Soft and benign. EXTREMITIES: No clubbing, cyanosis, or edema. Visual inspection of the left knee demonstrates her to have a positive ballottement also with posterior translation of the tibia relative to the femur. She cannot fully extend or flex and the knee appears to be in a locked position. No varus or valgus deformity is identified. IMAGING STUDIES: Four views of left knee demonstrates a posterior dislocation of her constrained post behind her femoral component, best appreciated on the lateral view. IMPRESSION: Left knee revision constrained construct with multiple dislocations. PLAN: 1. N.p.o. after midnight. 2. The risks, benefits, options, alternatives, and rationale for proceeding with closed versus open reduction under general anesthesia had been explained very detail with the patient and she is ready to proceed. All questions answered. No guarantee of outcome stated or implied. 3. Please see orders. Job ID: [id number]
[2020-02-24] MEDS: Sodium Chloride 0.9% 1,000 ML IV SCH (21:20)
[2020-02-24 22:49] LABS: SARS-CoV-2 MS2 Positive; SARS-CoV-2 N Gene Negative; SARS-CoV-2 S Gene Negative; SARS-CoV-2 by NAA Not Detected (NotDetected); SARS-CoV-2 orf1ab Negative
[2020-02-25 02:26] VITALS: BMI 35.3
[2020-02-25] MEDS: Sodium Chloride 0.9% 1,000 ML IV SCH (06:48)
[2020-02-25] MEDS ORDERED: glipiZIDE 5 MG TAB PO SCH (07:30)
[2020-02-25] MEDS ORDERED: Hydrochlorothiazide 25 MG TAB PO SCH (09:00)
[2020-02-25] MEDS ORDERED: Aspirin 325 MG TAB PO SCH (09:00)
[2020-02-25] MEDS ORDERED: GLUCOSAMINE PO SCH (09:00)
[2020-02-25] MEDS ORDERED: Lisinopril 20 MG TAB PO SCH (09:00)
[2020-02-25] MEDS ORDERED: BOSWELLIA SERRA PO SCH (09:00)
[2020-02-25] MEDS ORDERED: Loratadine 10 MG TAB PO SCH (09:00)
[2020-02-25] MEDS ORDERED: D3 PO SCH (09:00)
[2020-02-25] MEDS ORDERED: Fluticasone Propionate Nasal Spray 16 gm Bottle NASAL SCH (09:00)
[2020-02-25] MEDS ORDERED: Multivit, Therapeutic 1 TAB PO SCH (09:00)
[2020-02-25] MEDS ORDERED: Fentanyl 100 MCG/2 ML VIAL ONE (09:34)
[2020-02-25] MEDS ORDERED: Rocuronium Bromide 10 MG/ML (10ML VIAL) ONE (10:08)
[2020-02-25] MEDS ORDERED: PROPOFOL 200 MG/20 ML VIAL ONE (10:08)
[2020-02-25] MEDS ORDERED: Ondansetron PF 4 MG/2 ML Vial ONE (10:08)
[2020-02-25] MEDS ORDERED: Lidocaine 1% PF 5 ML VIAL ONE (10:08)
[2020-02-25] MEDS ORDERED: SUGAMMADEX SODIUM 200 MG/2 ML VIAL ONE (10:09)
--- NOTE | 2020-02-25 10:24 | OP ---
DATE OF PROCEDURE: 02/25/2020 PROCEDURE PERFORMED: Closed reduction of left knee under general anesthesia. HUMAN RESOURCE ANALYST: Bill Linares PA-C. BLOOD LOSS: Minimal. SPECIMEN: None. DRAINS: None. COMPLICATIONS: None. DESCRIPTION OF PROCEDURE: The creative assistant/co-surgeon was present through the entire procedure and was responsible for providing exposure, tissue retraction and any necessary limb or tissue manipulation required to obtain necessary reduction or hardware placement. The creative assistant/co-surgeon also provided bleeding control, tissue closure, and suturing in conjunction with the primary surgeon. After anesthesia induced, Bill Linares held counter traction, held the knee in flexion while performed a flexion reduction maneuver to reduce the post back into the notch. X-rays were obtained, which showed anatomic reduction. The patient was placed in a knee immobilizer. No complications. Job ID: [id number]
--- NOTE | 2020-02-25 10:41 | RAD ---
EXAM: XR Knee Lt 2 View DATE: 02/25/2020 9:20 AM INDICATION: Closed reduction of the left knee COMPARISON: Prior exam dated February 24, 2020 FINDING: Since the comparison exam, there is been interval reduction of the posterior knee dislocati on seen on the comparison study. Periprosthetic fracture is not as well detailed on the fluoroscopic images. 2 total images were submitted. Total exposure was 0.13 mGy. Fluoroscopic time wa s 4 seconds. IMPRESSION:Interval reduction of the posterior left knee dislocation. The periprosthetic fracture is not well detailed on the current study.
[2020-02-25 15:16] VITALS: BP 107/61; TEMP 98.2
[2020-02-25] MEDS ORDERED: METFORMIN 750 MG PO SCH (21:00)
[2020-02-25] MEDS ORDERED: Atorvastatin Calcium 20 MG TAB PO SCH (21:00)
[2020-02-25] MEDS ORDERED: Amlodipine 5 MG TAB PO SCH (21:00)
== END 2020-02-25 15:32 | disposition home or self-care (01) ==
LOC: ERS 15:28 → SJJU 16:34
PROVIDERS: ADMIT Orthopaedic Surgery; ATTEND Orthopaedic Surgery
PROC: 0SSDXZZ Reposition Left Knee Joint, External Approach (ICD-10-PCS; principal; 2020-02-25)
DX: T84.023A Instability of internal left knee prosthesis, initial encounter (principal); E11.9 Type 2 diabetes mellitus without complications; E78.5 Hyperlipidemia, unspecified; K21.9 Gastro-esophageal reflux disease without esophagitis; M24.462 Recurrent dislocation, left knee; J45.909 Unspecified asthma, uncomplicated; Z79.82 Long term (current) use of aspirin; Z79.84 Long term (current) use of oral hypoglycemic drugs; Z79.899 Other long term (current) drug therapy; Z20.828 Contact with and (suspected) exposure to other viral communicable diseases; X58.XXXA Exposure to other specified factors, initial encounter
CPT/HCPCS: 27552; 73560; 73564; 76000; 80053; 85025; 85610; 85730; 93005; 96374; 99284; G0378 ×3; U0003; 36415; 87635; J2270; J2405; J2704; J3010

== ENCOUNTER 2020-03-01 10:02 | Inpatient (IN) | payer MEDICARE ==
[2020-02-29 10:04] VITALS: BMI 35.3
[~2020-03-01 10:02] MED LIST: Bupivacaine HCl 0.5%/Epinephrine 1:200,000/PF 30 ml Vial ONE; Ketorolac Tromethamine 30 MG/ML VIAL ONE; Lidocaine 1% PF 5 ML VIAL ONE; Metoclopramide HCl 10 MG/2 ML VIAL ONE; Ondansetron PF 4 MG/2 ML Vial ONE; PHENYLEPHRINE-NS 100 MCG/ML 10 ML SYRINGE ONE; PROPOFOL 200 MG/20 ML VIAL ONE; Ropivacaine 0.2% HCl/PF (40 MG/20 ML VIAL) ONE; Ropivacaine 0.5% HCl/PF (150 MG/30 ML VIAL) ONE
[2020-03-01] MEDS ORDERED: Tranexamic Acid 1,000 MG/10 ML VIAL ONE (10:26)
[2020-03-01] MEDS ORDERED: Sodium Chloride 0.9% 100 ML ONE (10:26)
[2020-03-01] MEDS ORDERED: Vancomycin 1.5 GRAM/300 ML BAG ONE (10:26)
[2020-03-01] MEDS ORDERED: Fentanyl 100 MCG/2 ML VIAL ONE ×2 (10:53→11:43)
[2020-03-01] MEDS ORDERED: Midazolam HCl 2 mg/2 ml Vial ONE (10:53)
[2020-03-01] MEDS ORDERED: Lidocaine 1% (PF) 30 ML VIAL ONE (10:53)
[2020-03-01] MEDS ORDERED: Fentanyl 100 MCG/2 ML VIAL IV PRN (11:44)
[2020-03-01] MEDS ORDERED: Ondansetron PF 4 MG/2 ML Vial IVP PRN ×2 (11:45→14:02)
[2020-03-01] MEDS ORDERED: Ropivacaine HCl/PF 250 ML in Premix Bag 1 BAG NERVE BLCK SCH (11:45)
[2020-03-01] MEDS ORDERED: traMADol HCl 50 MG TAB PO PRN (11:45)
[2020-03-01] MEDS ORDERED: HYDROcodone/Acetaminophen 10/325 mg Tablet PO PRN (11:45)
[2020-03-01] MEDS ORDERED: Promethazine HCl 25 MG/ML VIAL IM PRN ×3 (11:45→14:02)
[2020-03-01] MEDS ORDERED: Zolpidem Tartrate 5 MG TAB PO PRN ×2 (11:45→14:02)
[2020-03-01] MEDS ORDERED: Promethazine HCl 25 MG/ML VIAL SLOW IVP PRN (12:04)
[2020-03-01] MEDS ORDERED: PACU-Morphine 4MG/ML VIAL SLOW IVP PRN (12:04)
[2020-03-01] MEDS ORDERED: Acetaminophen 325 MG TAB PO PRN (14:02)
[2020-03-01] MEDS ORDERED: diphenhydrAMINE 25 MG CAP PO PRN (14:02)
--- NOTE | 2020-03-01 14:34 | RAD ---
XR Knee Lt 2 View History: Postop total knee Comparison: Radiograph February 25, 2020 Findings: Revisualization of the distal femoral metaphyseal fracture line. New subcutaneous gas and e donna with large joint effusion. Open reduction of the knee dislocation. Impression: Satisfactory. Postoperative revision appearance.
--- NOTE | 2020-03-01 16:47 | OP ---
DATE OF PROCEDURE: 03/01/2020 TITLE OF PROCEDURES: 1. Left revision total knee arthroplasty in one component. 2. Repair of lateral collateral ligament. ASSISTANT PRODUCT MANAGER: Yeyo Doan PA-C. BLOOD LOSS: Minimal. SPECIMEN: Frozen section and culture. Frozen section was negative for inflammatory cells. DRAINS: None. COMPLICATIONS: None. DESCRIPTION OF PROCEDURE: The patient was taken to the operating room where general anesthesia was induced. Left leg was prepped and draped in the usual sterile fashion. After exsanguination of the leg, the tourniquet was inflated to 300 mmHg. I incised the old scar. I created good flaps medially and laterally. Dissection carried down to the medial parapatellar retinaculum, which was divided. The patella was everted. A synovectomy was performed. On exam of the knee, it appeared that the lateral collateral ligament had become deficient during one of her injuries and the knee was spinning out laterally. I removed the tibial insert, which was a size 13. I felt that a combination of revising the tibial component to external rotation to destress the lateral collateral ligament and repair the lateral collateral ligament. Together, it might improve the stability of the knee. I carefully removed the tibial component using an oscillating saw with multiple offset punches. I decompressed the posterior aspect of the knee joint, which was causing an anterior translation of the tibia in flexion. I then carefully removed the cement using [place] set. Once this completed, I externally rotated the tibia about 10 to 15 degrees and this seemed to improve the stability quite a bit on the trial. I drilled and punched the proximal tibia. Tibia was cemented in place. I had to remove the proximal tibia with clean-up cut, so I went up to a 19-mm polyethylene component. This was inserted with the appropriate locking pin. This greatly improved the stability of the knee; however, it was felt that there might still be some risk of lateral spin out, so I identified the lateral collateral ligament and used a Krackow stitch and put a Krackow sutures through the lateral collateral ligament and repaired this back to the lateral epicondyle using a 4.75 SwiveLock and had to predrill the femur because of bone stock and then inserted the sutures with a good repair. Irrigation was performed. The retinaculum was repaired with #2 Quill and #2 Vicryl. Subcu closed with 0 Quill. Skin was closed 2-0 Monocryl and skin glue was applied and a sterile dressing applied. There were no complications. Job ID: [id number]
[2020-03-01] MEDS ORDERED: glipiZIDE 5 MG TAB PO SCH (17:00)
[2020-03-01] MEDS ORDERED: Dextrose 50% Abboject 50 ML SYRINGE SLOW IVP PRN (18:12)
[2020-03-01] MEDS ORDERED: Dextrose 5% in Water 1,000 ML IV PRN (18:12)
[2020-03-01] MEDS ORDERED: HumaLOG 300 UNITS/3 ML VIAL SC PRN (18:12)
--- NOTE | 2020-03-01 19:45 | PDOC.HHP ---
Hospitalist HPI - History of Present Illness CONSULT FOR MEDICAL MANAGEMENT History of Present Illness: CONSULT NOTE CONSULT REQUESTED BY: Dr. Mcmahan for medical management Ms. Wisdom is a 80-year-old female the past medical history of hypertension, hyperlipidemia, type 2 diabetes mellitus, asthenia, chronic back pain, seasonal allergies, osteoarthritis who underwent a left revision of a total knee replacement with Dr. Mcmahan on 03/01/2020. Hospitalist service consulted for medical management of patient's chronic conditions. Patient tolerated operation well with no complications noted in operative note. She currently denies chest pain, shortness of breath, abdominal pain. Denies numbness, weakness, paresthesias. No current concerns or complaints. Pain is well managed. No bowel movement, however is passing gas. Chart and medications reviewed. Hospitalist ROS - Review of Systems Constitutional: denies: fever, chills, sweats, weakness, malaise, other Eyes: denies: pain, vision change, conjunctivae inflammation, eyelid inflammation, redness, other ENT: denies: ear pain, ear discharge, nose pain, nose discharge, nose co ngestion, mouth pain, mouth swelling, throat pain, throat swelling, other Respiratory: denies: cough, dry, shortness of breath, hemoptysis, SOB with excertion, pleuritic pain, sputum, wheezing, other Cardiovascular: denies: chest pain, palpitations, orthopnea, paroxysmal noc. dyspnea, edema, light headedness, other Gastrointestinal: denies: nausea, vomiting, abdominal pain, diarrhea, constipation, melena, hematochezia, other Genitourinary: denies: dysuria, frequency, incontinence, hematuria, retention, other Musculoskeletal: denies: neck pain, shoulder pain, arm pain, back pain, hand pain, leg pain, foot pain, other Skin: denies: rash, lesions, bro, bruising, other Neurological: denies: weakness, numbness, incoordination, change in speech, confusion, seizures, other - Medication Medications: Home medications include Aspirin Amlodipine [place] Atorvastatin Hydrochlorothiazide Fosinopril Metformin Metoprolol Glipizide Omeprazole Loratadine No known drug allergies Hospitalist History - Past Medical History Other Medical History: Past surgical history includes Hypertension Hyperlipidemia Asthma Dysphagia Type 2 diabetes mellitus Chronic back pain Seasonal allergies Osteoarthritis - Past Surgical History Other Surgical History: Past surgical history includes Left total knee replacement Hysterectomy Cholecystectomy Cataracts - Family History Other Family History: Patient denies any family history of cardiac disease or cancers - Exam General Appearance: NAD, awake alert Eye: PERRL, anicteric sclera ENT: normocephalic atraumatic, no oropharyngeal lesions, moist mucosa Neck: supple, symmetric, no JVD, no thyromegaly, no lymphadenopathy, no carotid bruit Heart: RRR, no murmur, no gallops, no rubs, normal peripheral pulses Respiratory: CTAB, no wheezes, no rales, no ronchi, normal chest expansion, no tachypnea, normal percussion Gastrointestinal: soft, non-tender, non-distended, normal bowel sounds, no palpable masses, no hepatomegaly, no splenomegaly, no bruit Extremities: no cyanosis, no clubbing, no edema Extremities - other findings: Dressing C/D/I Skin: normal turgor, no lesions, no rashes Neurological: cranial nerve grossly intact, normal sensation to touch, no weakness, no focal deficits, no new deficit Musculoskeletal: normal tone, normal strength, no muscle wasting Psychiatric: normal affect, normal behavior, A&O x 3 Hospitalist Results - Labs Result Diagrams: 03/01/20 19:24 03/01/20 19:24 Hospitalist H&P A/P - Plan Plan: S/p L Revision TKR -POD #0 -Encouraged IS -No BM, passing flatus -Post-op course per surgical team T2DM -Hold oral agents -ISS, ACHS glucose checks -CC diet when tolerated HTN -Cont. home amlodipine, metoprolol, HCT -Will hold home Fosinopril until after BMP is checked GERD -Cont home omeprazole HLD -Continue home statin Asthma -No respiratory distress -Albuterol neb PRN CAD -Continue ASA at discretion of surgical team DVT prophylaxis- per surgical team FULL CODE Case discussed with Dr. Panchal
[2020-03-01 19:51] LABS: #Basophils 0.1 thou/uL (0.0-0.2); #Lymphocytes 1.9 thou/uL (1.20-3.40); #Monocytes 0.7 thou/uL (0.11-0.59); #Neutrophils 13.3 thou/uL (1.40-6.50); %Basophils 0.4 % (0.0-1.0); %Eosinophils 0.3 % (0.0-10.0); %Lymphocytes 11.7 % (21.0-51.0); %Monocytes 4.4 % (0.0-10.0); %Neutrophils 83.2 % (42.0-75.0); Hemoglobin 12.3 g/dL (12.0-16.0); Mean Corpuscular HGB CONC 32.5 g/dL (32.0-36.0); Mean Corpuscular Volume 86.2 fL (78.0-98.0); Mean Platelet Volume 8.5 fL (7.4-10.4); Platelet Count 324 thou/uL (130-400); RBC Distribution Width 13.2 % (11.5-14.5); Red Blood Cell (RBC) Count 4.38 mill/uL (4.20-5.40)
[2020-03-01 20:09] LABS: Anion Gap 15 mmol/L (10-20); BUN (Urea Nitrogen) 18 mg/dL (9.8-20.1); Calc. Creatinine Clearance 104 mL/min (70-130); Calcium 8.8 mg/dL (7.8-10.44); Carbon Dioxide 23 mmol/L (23-31); Chloride 103 mmol/L (98-107); Glucose 253 mg/dL (83-110); Potassium 4.5 mmol/L (3.5-5.1); Sodium 136 mmol/L (136-145)
[2020-03-01] MEDS: Amlodipine 5 MG TAB PO SCH (20:29)
[2020-03-01] MEDS: Lisinopril 20 MG TAB PO SCH (20:29)
[2020-03-01] MEDS: CEFAZOLIN 2 GM in Premix Bag 1 BAG IVPB SCH (20:29)
[2020-03-01] MEDS: Atorvastatin Calcium 20 MG TAB PO SCH (20:29)
[2020-03-01] MEDS: Aspirin 81 mg Enteric Coated Tablet PO SCH (20:29)
[2020-03-01] MEDS ORDERED: PATIENT'S HOME MEDICATION PO SCH (21:00)
[2020-03-01] MEDS ORDERED: metFORMIN XR 500 MG TAB PO SCH (21:00)
[2020-03-02] MEDS: traMADol HCl 50 MG TAB PO PRN ×2 (02:35→20:33)
[2020-03-02] MEDS: CEFAZOLIN 2 GM in Premix Bag 1 BAG IVPB SCH (04:56)
[2020-03-02] MEDS: HYDROcodone/Acetaminophen 10/325 mg Tablet PO PRN ×3 (06:33→22:59)
[2020-03-02 06:49] LABS: Hemoglobin 11.4 g/dL (12.0-16.0); Mean Corpuscular HGB CONC 32.8 g/dL (32.0-36.0); Mean Corpuscular Volume 85.4 fL (78.0-98.0); Mean Platelet Volume 8.4 fL (7.4-10.4); Platelet Count 318 thou/uL (130-400); Red Blood Cell (RBC) Count 4.05 mill/uL (4.20-5.40); White Blood Cell (WBC) Count 13.6 thou/uL (4.8-10.8)
[2020-03-02] MEDS: Sodium Chloride 0.9% 1,000 ML IV SCH ×4 (06:53→21:38)
[2020-03-02] MEDS: HumaLOG 300 UNITS/3 ML VIAL SC PRN ×3 (07:19→17:28)
[2020-03-02] MEDS ORDERED: Multivitamin W/ Minerals 1 TAB PO SCH (09:00)
[2020-03-02] MEDS: Aspirin 81 mg Enteric Coated Tablet PO SCH ×2 (09:02→20:33)
[2020-03-02] MEDS: Senokot S 8.6-50 MG TAB PO SCH ×2 (09:02→20:33)
[2020-03-02] MEDS: Hydrochlorothiazide 25 MG TAB PO SCH (09:03)
[2020-03-02] MEDS: Loratadine 10 MG TAB PO SCH (09:03)
[2020-03-02] MEDS: Multivit, Therapeutic 1 TAB PO SCH (09:03)
[2020-03-02] MEDS: Ferrous Gluconate 324 MG TAB PO SCH ×2 (09:04→20:33)
[2020-03-02] MEDS: Lisinopril 20 MG TAB PO SCH ×2 (09:07→20:37)
[2020-03-02] MEDS: Fluticasone Propionate Nasal Spray 16 gm Bottle NASAL SCH (10:49)
[2020-03-02] MEDS: glipiZIDE 5 MG TAB PO SCH (16:24)
--- NOTE | 2020-03-02 17:59 | PDOC.HOSPP ---
- Subjective Encounter Date: 03/02/20 Encounter Time: 09:00 Subjective: Patient seen for follow-up for management of medical comorbidities. She denies any chest pain or shortness of breath. - Objective Vital Signs & Weight: Vital Signs (12 hours) Temp Pulse Resp BP BP Pulse Ox 03/02/20 15:28 98.0 F 78 18 115/67 93 L 03/02/20 11:00 98.0 F 83 18 136/61 93 L 03/02/20 09:07 145/65 H 03/02/20 07:47 98.5 F 83 20 145/64 H 89 L Weight Weight 206 lb I&O: 03/01/20 03/02/20 03/03/20 06:59 06:59 06:59 Intake Total 600 Output Total 350 Balance 600 -350 Result Diagrams: 03/02/20 06:22 03/01/20 19:24 Additional Labs: Accuchecks 03/02/20 03/02/20 03/02/20 15:55 10:57 06:40 POC Glucose 236 H 254 H 174 H Labs and MAR reviewed by ga Hospitalist ROS - Review of Systems Respiratory: denies: cough, shortness of breath, SOB with excertion, pleuritic pain, wheezing Cardiovascular: denies: chest pain, palpitations, orthopnea, paroxysmal noc. dyspnea, edema, light headedness - Medication Medications: Active Medications Generic Name Dose Route Start Last Admin Trade Name Freq PRN Reason Stop Dose Admin Hydrocodone Bitart/Acetaminophen 1 tab 03/01/20 11:45 03/02/20 16:31 Hydrocodone/Acetaminophen 10/325 Mg Tablet PO 1 tab Q4H PRN Administration Pain (1-3) Hydrocodone Bitart/Acetaminophen 2 tab 03/01/20 11:45 03/02/20 10:48 Hydrocodone/Acetaminophen 10/325 Mg Tablet PO 2 tab Q4H PRN Administration PAIN (4-6) Amlodipine Besylate 5 mg 03/01/20 21:00 03/01/20 20:29 Amlodipine 5 Mg Tab PO 5 mg HS ZOILA Administration Aspirin 81 mg 03/01/20 21:00 03/02/20 09:02 Aspirin 81 Mg Enteric Coated Tablet PO 81 mg BID ZOILA Administration Atorvastatin Calcium 20 mg 03/01/20 21:00 03/01/20 20:29 Atorvastatin Calcium 20 Mg Tab PO 20 mg HS ZOILA Administration Ferrous Gluconate 324 mg 03/02/20 09:00 03/02/20 09:04 Ferrous Gluconate 324 Mg Tab PO 324 mg BID ZOILA Administration Fluticasone Propionate 0 gm 03/02/20 09:00 03/02/20 10:49 Fluticasone Propionate Nasal [place] 16 Gm Bottle NASAL 1 spray DAILY ZOILA Administration Glipizide 5 mg 03/02/20 16:30 03/02/20 16:24 Glipizide 5 Mg Tab PO 5 mg BID-AC ZOLIA Administration Hydrochlorothiazide 25 mg 03/02/20 09:00 03/02/20 09:03 Hydrochlorothiazide 25 Mg Tab PO 25 mg QAM ZOILA Administration Ropivacaine 250 ml/ Device 250 mls @ 10 mls/hr 03/01/20 11:45 03/02/20 16:24 NERVE BLCK 03/04/20 11:44 250 mls INF ZOILA Administration As Directed Sodium Chloride 1,000 mls @ 100 mls/hr 03/01/20 14:15 03/02/20 10:25 Normal Saline 0.9% IV Not Given .Q10H ZOILA Insulin Human Lispro 0 units 03/01/20 18:12 03/02/20 17:28 Humalog 300 Units/3 Ml Vial SC 3 units .MILD SLIDING SCALE PRN Administration Mild Correctional Scale Insulin Human Lispro 0 units 03/01/20 18:12 03/01/20 20:50 Humalog 300 Units/3 Ml Vial SC 3 unit .BEDTIME SLIDING SC PRN Administration Bedtime Correctional Scale Lisinopril 40 mg 03/01/20 21:00 03/02/20 09:07 Lisinopril 20 Mg Tab PO 40 mg BID ZOILA Administration Loratadine 10 mg 03/02/20 09:00 03/02/20 09:03 Loratadine 10 Mg Tab PO 10 mg DAILY ZOILA Administration Metoprolol Succinate 100 mg 03/02/20 09:00 03/02/20 09:03 Metoprolol Succinate Xl 100 Mg Tab PO 100 mg QAM ZOILA Administration Multivitamins 1 tab 03/02/20 09:00 03/02/20 09:03 Multivit, Therapeutic 1 Tab PO 1 tab DAILY ZOILA Administration Pantoprazole Sodium 40 mg 03/02/20 09:00 03/02/20 09:03 Pantoprazole 40 Mg Tab PO 40 mg DAILY ZOILA Administration Senna/Docusate Sodium 2 tab 03/02/20 09:00 03/02/20 09:02 Senokot S 8.6-50 Mg Tab PO 2 tab BID ZOILA Administration Tramadol HCl 100 mg 03/01/20 11:45 03/02/20 02:35 Tramadol Hcl 50 Mg Tab PO 100 mg Q6H PRN Administration Moderate Pain 4-6 - Exam General Appearance: awake alert General - other findings: Obese Eye: anicteric sclera ENT: normocephalic atraumatic Neck: supple Heart: RRR Respiratory: CTAB Gastrointestinal: soft, non-tender Extremities - other findings: Status post left knee surgery Skin: no rashes Psychiatric: normal affect, normal behavior Hosp A/P - Plan -Assessment/plan T2DM Resume glipizide, continue Accu-Cheks and insulin sliding scale. Diabetic diet. HTN Controlled and stable. GERD Continue PPI. HLD Stable, continue statin. Asthma Stable, continue as needed beta agonist. CAD Stable.
[2020-03-02] MEDS: Atorvastatin Calcium 20 MG TAB PO SCH (20:33)
[2020-03-02] MEDS: Amlodipine 5 MG TAB PO SCH (20:37)
[2020-03-03] MEDS: HYDROcodone/Acetaminophen 10/325 mg Tablet PO PRN (05:18)
[2020-03-03 08:49] VITALS: BP 125/65; TEMP 98.3
[2020-03-03] MEDS: Fluticasone Propionate Nasal Spray 16 gm Bottle NASAL SCH (08:59)
[2020-03-03] MEDS: Senokot S 8.6-50 MG TAB PO SCH (09:00)
[2020-03-03] MEDS: Aspirin 81 mg Enteric Coated Tablet PO SCH (09:00)
[2020-03-03] MEDS: Multivit, Therapeutic 1 TAB PO SCH (09:00)
[2020-03-03] MEDS: glipiZIDE 5 MG TAB PO SCH (09:01)
[2020-03-03] MEDS: Loratadine 10 MG TAB PO SCH (09:01)
[2020-03-03] MEDS: Lisinopril 20 MG TAB PO SCH (09:01)
[2020-03-03] MEDS: Ferrous Gluconate 324 MG TAB PO SCH (09:02)
[2020-03-03] MEDS: Hydrochlorothiazide 25 MG TAB PO SCH (09:04)
== END 2020-03-03 10:50 | disposition home or self-care (01) | DRG 468 ==
LOC: SDC 10:02 → SURG A 16:59
PROVIDERS: ADMIT Orthopaedic Surgery; ATTEND Orthopaedic Surgery
PROC: 0SPV0JZ Removal of Synthetic Substitute from Right Knee Joint, Tibial Surface, Open Approach (ICD-10-PCS; principal; 2020-03-01)
PROC: 0SRV0J9 Replacement of Right Knee Joint, Tibial Surface with Synthetic Substitute, Cemented, Open Approach (ICD-10-PCS; 2020-03-01)
PROC: 0MQP0ZZ Repair Left Knee Bursa and Ligament, Open Approach (ICD-10-PCS; 2020-03-01)
DX: T84.093A Other mechanical complication of internal left knee prosthesis, initial encounter (principal); E78.5 Hyperlipidemia, unspecified; I10 Essential (primary) hypertension; E11.9 Type 2 diabetes mellitus without complications; G89.29 Other chronic pain; E66.9 Obesity, unspecified; M54.9 Dorsalgia, unspecified; J45.909 Unspecified asthma, uncomplicated; I25.10 Atherosclerotic heart disease of native coronary artery without angina pectoris; J30.2 Other seasonal allergic rhinitis; Z79.82 Long term (current) use of aspirin; Z79.899 Other long term (current) drug therapy; Z79.84 Long term (current) use of oral hypoglycemic drugs; Z90.49 Acquired absence of other specified parts of digestive tract; Z90.710 Acquired absence of both cervix and uterus; Z98.49 Cataract extraction status, unspecified eye; Z68.35 Body mass index [BMI] 35.0-35.9, adult
CPT/HCPCS: 36415; 36416; 80048; 85025; 85027; 87070; 87205; 88305; 88331; 89060; C1713; C1776; J0690; J1885; J2001; J2250; J2405; J2704; J2765; J2795; J3010; J3370; J3490

== ENCOUNTER 2022-02-02 11:49 | Outpatient (CLI) | payer MEDICARE | END 2022-02-02 11:50 | disposition home or self-care (01) | LOC: BICMAMMO 11:49 | PROVIDERS: ATTEND Family Medicine | DX: Z12.31 Encounter for screening mammogram for malignant neoplasm of breast (principal); R92.1 Mammographic calcification found on diagnostic imaging of breast; R92.8 Other abnormal and inconclusive findings on diagnostic imaging of breast; Z80.3 Family history of malignant neoplasm of breast | CPT/HCPCS: 77063; 77067 ==

== ENCOUNTER 2022-03-07 08:56 | Outpatient (CLI) | payer MEDICARE ==
[~2022-03-07 08:56] MED LIST changes: -Bupivacaine HCl 0.5%/Epinephrine 1:200,000/PF 30 ml Vial ONE; +Iopamidol 370 76% 100 ML VIAL ONE; -Ketorolac Tromethamine 30 MG/ML VIAL ONE; -Lidocaine 1% PF 5 ML VIAL ONE; -Metoclopramide HCl 10 MG/2 ML VIAL ONE; -Ondansetron PF 4 MG/2 ML Vial ONE; -PHENYLEPHRINE-NS 100 MCG/ML 10 ML SYRINGE ONE; -PROPOFOL 200 MG/20 ML VIAL ONE; -Ropivacaine 0.2% HCl/PF (40 MG/20 ML VIAL) ONE; -Ropivacaine 0.5% HCl/PF (150 MG/30 ML VIAL) ONE
== END 2022-03-07 08:57 | disposition home or self-care (01) ==
LOC: CT 08:56
PROVIDERS: ATTEND Internal Medicine Gastroenterology
DX: K52.9 Noninfective gastroenteritis and colitis, unspecified (principal); R22.2 Localized swelling, mass and lump, trunk; K63.5 Polyp of colon; E27.8 Other specified disorders of adrenal gland; I70.90 Unspecified atherosclerosis; Z80.0 Family history of malignant neoplasm of digestive organs
CPT/HCPCS: 74177; 82565; Q9967

== ENCOUNTER 2022-04-06 07:56 | Outpatient (CLI) | payer MEDICARE | END 2022-04-06 07:57 | disposition home or self-care (01) | LOC: BICCT 07:56 | PROVIDERS: ATTEND Family Medicine | DX: E27.8 Other specified disorders of adrenal gland (principal); D35.01 Benign neoplasm of right adrenal gland | CPT/HCPCS: 74170 ==